=== PATIENT | male | born 1985 | race Caucasian/White ===

== ENCOUNTER 2016-09-28 20:31 | Emergency (ER) | payer OTHER, BC ==
[~2016-09-28] VITALS: Ht 167.6 cm; Wt 50.8 kg
[2016-09-28 22:52] VITALS: BP 113/64
== END 2016-09-28 22:52 | disposition home or self-care (01) ==
LOC: ED 20:31
DX: S01.111A Laceration without foreign body of right eyelid and periocular area, initial encounter (principal); Q05.9 Spina bifida, unspecified; W01.10XA Fall on same level from slipping, tripping and stumbling with subsequent striking against unspecified object, initial encounter; Y93.89 Activity, other specified; Y92.89 Other specified places as the place of occurrence of the external cause; Y99.8 Other external cause status